=== PATIENT | female | born 2005 | race Caucasian/White ===

== ENCOUNTER 2025-01-31 17:46 | Emergency (ER) | payer MEDICAID ==
[~2025-01-31] VITALS: Ht 162.6 cm; Wt 55.0 kg
[2025-01-31 17:56] VITALS: O2SAT 100
[2025-01-31 18:20] VITALS: BP 123/50; PULSE 91; RESP 19; TEMP 36.3; O2SAT 100
[2025-01-31 19:22] LABS: CREATININE 0.7 mg/dL (0.6-1.0); UREA NITROGEN BLOOD 10 mg/dL (9-23)
[2025-01-31 19:34] LABS: BASOPHILS % 0.5 % (0.0-2.0); EOSINOPHILS % 0.9 % (0.0-5.0); HEMATOCRIT. 38.6 % (36.0-48.0); HEMOGLOBIN. 12.9 g/dL (12.0-16.0); LYMPHOCYTES % 14.8 % (20.0-50.0); MEAN PLATELET VOLUME 9.3 fl (7.4-10.4); MONOCYTES % 9.5 % (2.0-8.0); NEUTROPHILS % 74.3 % (40.0-76.0); PLATELET 218 x1000/uL (130-400); RED BLOOD CELL COUNT 3.93 mill/uL (4.2-5.4); RED CELL DISTRIBUTION WIDTH 13.0 % (11.6-14.6)
[2025-01-31 19:53] LABS: HCG SCREEN POSITIVE
== END 2025-01-31 22:39 | disposition home or self-care (01) ==
LOC: ER 17:46
DX: R55 Syncope and collapse (principal); R10.2 Pelvic and perineal pain; Z32.01 Encounter for pregnancy test, result positive
CPT/HCPCS: 36415; 76801; 80048; 84702; 84703; 85025; 99284